=== PATIENT | male | born 1955 | race Caucasian/White ===

== ENCOUNTER 2018-11-24 11:00 | Day surgery (SDC) | payer OTHER ==
[~2018-11-24] VITALS: Ht 182.9 cm; Wt 104.5 kg
[~2018-11-24 11:00] MED LIST: METPRE4DP PO; Percocet 5-3251 EACH PO; SUTENT; TIOT18 INH; [UNRECOGNIZED DRUG - REMARK]
--- NOTE | 2018-11-24 12:24 | NUR ---
11/24/18 1224 Sisi Olmedo FIRST IV START WAS IN RIGHT HAND. IV SIGHT LOOKS GOOD
== END 2018-11-24 14:10 | disposition home or self-care (01) ==
LOC: ORSCSDS 11:00
PROVIDERS: Student in an Organized Health Care Education/Training Program
PROC: 0DB68ZX Excision of Stomach, Via Natural or Artificial Opening Endoscopic, Diagnostic (ICD-10-PCS; principal; 2018-11-24 12:15)
PROC: 0DB58ZX Excision of Esophagus, Via Natural or Artificial Opening Endoscopic, Diagnostic (ICD-10-PCS; principal; 2018-11-24 12:15)
PROC: 0DB98ZX Excision of Duodenum, Via Natural or Artificial Opening Endoscopic, Diagnostic (ICD-10-PCS; principal; 2018-11-24 12:15)
DX: R13.10 Dysphagia, unspecified (principal); R91.8 Other nonspecific abnormal finding of lung field; K29.80 Duodenitis without bleeding; K29.70 Gastritis, unspecified, without bleeding; K20.9 Esophagitis, unspecified; K44.9 Diaphragmatic hernia without obstruction or gangrene; Z87.891 Personal history of nicotine dependence; J45.909 Unspecified asthma, uncomplicated; Z79.899 Other long term (current) drug therapy
CPT/HCPCS: 88305; 88342; J2704; J7120

== ENCOUNTER 2019-03-02 09:48 | Day surgery (SDC) | payer OTHER, MEDICARE ==
[~2019-03-02] VITALS: Ht 180.3 cm; Wt 104.8 kg
--- NOTE | 2019-03-02 11:59 | NUR ---
03/02/19 Inocencia9 Earline Bruce LATE ENTRY PATIENT REFUSED MULTIPLE OFFERS OF PO FLUIDS.
== END 2019-03-02 11:44 | disposition home or self-care (01) ==
LOC: ORSCSDS 09:48
PROVIDERS: Student in an Organized Health Care Education/Training Program
PROC: 0DB68ZX Excision of Stomach, Via Natural or Artificial Opening Endoscopic, Diagnostic (ICD-10-PCS; principal; 2019-03-02 12:00)
PROC: 0DB48ZX Excision of Esophagogastric Junction, Via Natural or Artificial Opening Endoscopic, Diagnostic (ICD-10-PCS; principal; 2019-03-02 12:00)
DX: R13.10 Dysphagia, unspecified (principal); K29.70 Gastritis, unspecified, without bleeding; K31.9 Disease of stomach and duodenum, unspecified; K21.9 Gastro-esophageal reflux disease without esophagitis; K44.9 Diaphragmatic hernia without obstruction or gangrene; J45.909 Unspecified asthma, uncomplicated; Z86.711 Personal history of pulmonary embolism; E66.01 Morbid (severe) obesity due to excess calories; Z68.33 Body mass index [BMI] 33.0-33.9, adult; Z79.899 Other long term (current) drug therapy
CPT/HCPCS: J2001; J2704; J7120

== ENCOUNTER 2019-05-11 01:20 | Inpatient (IN) | payer OTHER, MEDICARE ==
[~2019-05-11] VITALS: Ht 180.3 cm; Wt 105.0 kg
[2019-05-11] MEDS ORDERED: Clotrimazole15 GM TOP (01:40)
[2019-05-11] MEDS ORDERED: OMEP20ER PO (01:40)
[2019-05-11] MEDS ORDERED: MINO50 PO (01:40)
[2019-05-11 02:44] LABS: BASOPHILS ABSOLUTE AUTO 0.01 K/mm3 (0.00-0.23); BASOPHILS PERCENT AUTO 0 % (0-2); EOSINOPHILS ABSOLUTE AUTO 0.06 K/mm3 (0.00-0.68); EOSINOPHILS PERCENT AUTO 2 % (0-6); Hematocrit 32.6 % (37.0-53.0); Hemoglobin 10.4 g/dL (13.5-17.5); IMMATURE GRAN ABSOLUTE AUTO 0.01 K/mm3 (0.00-0.10); IMMATURE GRAN PERCENT AUTO 0 % (0-1); LYMPHOCYTES ABSOLUTE AUTO 0.62 K/mm3 (0.84-5.20); LYMPHOCYTES PERCENT AUTO 17 % (21-46); MONOCYTES ABSOLUTE AUTO 0.76 K/mm3 (0.16-1.47); MONOCYTES PERCENT AUTO 21 % (4-13); Mean Corpuscular HGB 30.7 pg (26.0-34.0); Mean Corpuscular HGB Conc 31.9 g/dL (31.5-36.5); Mean Corpuscular Volume 96 fL (80-100); Mean Platelet Volume 10.2 fL (9.1-12.4); NEUTROPHILS ABSOLUTE AUTO 2.15 K/mm3 (1.96-9.15); NEUTROPHILS PERCENT AUTO 59 % (41-73); Platelet Count 133 K/mm3 (150-400); RDW Coefficient Variation 16.6 % (11.7-14.2); RDW Standard Deviation 59.1 fL (35.1-46.3); Red Blood Cell Count 3.39 M/mm3 (4.30-5.90); White Blood Cell Count 3.61 K/mm3 (4.00-11.30)
[2019-05-11 03:05] LABS: Albumin/Globulin Ratio 0.9 (0.8-1.8); Bilirubin, Total 0.6 mg/dL (0.1-1.0); Bun/Creatinine Ratio 12.7 (12.0-20.0); Creatinine, Blood 1.57 mg/dL (0.60-1.20); Globulin, Blood 3.3 g/dL (2.2-4.0); Magnesium, Blood 1.8 mg/dL (1.6-2.4); Potassium, Blood 4.2 mmol/L (3.5-5.5); Total Protein, Blood 6.3 g/dL (6.4-8.2); Troponin I 0.071 ng/mL (0.000-0.040)
[2019-05-11 03:36] LABS: Influenza A Negative (NEGATIVE); Influenza B Negative (NEGATIVE)
[2019-05-11 04:02] LABS: Source, Urine Clean Catch
[2019-05-11 04:06] LABS: Bilirubin, Urine Neg (Neg); Blood, Urine 1+ (Neg); Glucose Qualitative, Urine Neg (Neg); Ketones, Urine 3+ (Neg); Leukocyte Esterase, Urine Neg (Neg); Nitrite, Urine Neg (Neg); Protein, Urine 2+ (Neg); Specific Gravity, Urine 1.015 (1.003-1.022); Urobilinogen, Urine NORM (Normal)
[2019-05-11 04:10] LABS: Appearance, Urine Clear (Clear); Color, Urine Yellow (P-Yellow)
[2019-05-11 04:12] LABS: Bacteria Few /hpf; Mucus Light (0-Heavy); Red Blood Cells, Urine 0-2 /hpf (0-2); Squamous Epithelial Cells Not Seen /hpf (Few); White Blood Cells, Urine 0-2 /hpf (0-5)
[2019-05-11 04:26] LABS: Adenovirus Not Detected (NOT DETECT); Coronavirus 229E Not Detected (NOT DETECT); Coronavirus HKU1 Not Detected (NOT DETECT); Coronavirus NL63 Not Detected (NOT DETECT); Coronavirus OC43 Not Detected (NOT DETECT); Human Metapneumovirus Not Detected (NOT DETECT); Human Rhinovirus/Enterovirus Not Detected (NOT DETECT); Influenza A/H1 Not Detected (NOT DETECT)
[2019-05-11 04:27] LABS: Bordetella pertussis Not Detected (NOT DETECT); Chlamydophila pneumoniae Not Detected (NOT DETECT); Influenza A/2009-H1 Not Detected (NOT DETECT); Influenza A/H3 Not Detected (NOT DETECT); Influenza B Not Detected (NOT DETECT); Mycoplasma pneumoniae Not Detected (NOT DETECT); Parainfluenza Virus 1 Not Detected (NOT DETECT); Parainfluenza Virus 2 Not Detected (NOT DETECT); Parainfluenza Virus 3 Not Detected (NOT DETECT); Parainfluenza Virus 4 Not Detected (NOT DETECT); Respiratory Syncytial Virus Not Detected (NOT DETECT)
[2019-05-11 06:48] LABS: Test Name COVID-19
[2019-05-11] MEDS ORDERED: Sutent50 MG (06:54)
--- NOTE | 2019-05-11 12:40 | NUR ---
NOTE PT RESTING QUIETLY. SR. VSS. PT SPOUCE HAS GONE HOME TO GET PT HOME MEDICATIONS. PT HAS NO COMPLAINTS AT THIS TIME. IVF INFUSING 100 ML/HR. CONTINUE POT.
[2019-05-12 04:38] LABS: BASOPHILS ABSOLUTE AUTO 0.01 K/mm3 (0.00-0.23); BASOPHILS PERCENT AUTO 0 % (0-2); EOSINOPHILS ABSOLUTE AUTO 0.12 K/mm3 (0.00-0.68); EOSINOPHILS PERCENT AUTO 4 % (0-6); Hematocrit 30.8 % (37.0-53.0); Hemoglobin 9.9 g/dL (13.5-17.5); IMMATURE GRAN ABSOLUTE AUTO 0.01 K/mm3 (0.00-0.10); IMMATURE GRAN PERCENT AUTO 0 % (0-1); LYMPHOCYTES ABSOLUTE AUTO 0.81 K/mm3 (0.84-5.20); LYMPHOCYTES PERCENT AUTO 25 % (21-46); MONOCYTES ABSOLUTE AUTO 0.64 K/mm3 (0.16-1.47); MONOCYTES PERCENT AUTO 20 % (4-13); Mean Corpuscular HGB 30.8 pg (26.0-34.0); Mean Corpuscular HGB Conc 32.1 g/dL (31.5-36.5); Mean Corpuscular Volume 96 fL (80-100); NEUTROPHILS PERCENT AUTO 50 % (41-73); Platelet Count 141 K/mm3 (150-400); RDW Coefficient Variation 16.9 % (11.7-14.2); RDW Standard Deviation 59.3 fL (35.1-46.3); Red Blood Cell Count 3.21 M/mm3 (4.30-5.90); White Blood Cell Count 3.19 K/mm3 (4.00-11.30)
--- NOTE | 2019-05-12 04:47 | NUR ---
PT TRANSFER REPORT GIVEN TO CANDICE MARQUEZ RN. PT BELONGINGS TO BE GATHERED AND BAGGED IN BELONGINGS BAGS AND SENT W/ PT. PT TO GO UP TO RM 327 BY WHEELCHAIR W/ PUPPET MAKER.
[2019-05-12 04:57] LABS: Albumin, Blood 2.6 g/dL (3.4-5.0); Albumin/Globulin Ratio 0.8 (0.8-1.8); Bilirubin, Total 0.3 mg/dL (0.1-1.0); Bun/Creatinine Ratio 13.6 (12.0-20.0); Calcium, Blood 7.8 mg/dL (8.5-10.1); Creatinine, Blood 1.62 mg/dL (0.60-1.20); Globulin, Blood 3.3 g/dL (2.2-4.0); Potassium, Blood 3.8 mmol/L (3.5-5.5); Total Protein, Blood 5.9 g/dL (6.4-8.2)
--- NOTE | 2019-05-12 05:52 | NUR ---
TRANSFER: REPORT IS RECIEVED FROM DISPLAY MANAGER, PATIENT IS TRANSFERED VIA WHEEL CHAIR. NO COMPLIANTS AT THOS TIME. PATIENT IS IN ISOLATION PENDING LAB RESULTS.
--- NOTE | 2019-05-12 07:37 | NUR ---
SHIFT SUMMARY: PATIENT HAS SLEPT SINCE COMING TO THE FLOOR, CONTINUES TO SLEEP COMFORTABLY. "I HAVE NEVER SLEPT SO MUCH IN MY LIFE". PATIENT REMAINS IN ENHANCED ISOLATION PENDING RESULTS TO R/O MELANI.
[2019-05-12] MEDS ORDERED: ACET325 PO (09:22)
[2019-05-12] MEDS ORDERED: SENN187 PO (09:23)
[2019-05-12] MEDS ORDERED: ONDA4ODT MM (09:23)
[2019-05-12] MEDS ORDERED: DOCU100 PO (09:24)
[2019-05-12] MEDS ORDERED: AMOCLA875 PO (09:25)
[2019-05-12] MEDS ORDERED: ALBU90OI INH (09:26)
--- NOTE | 2019-05-12 14:32 | NUR ---
COVID TEST RESULTS CAME BACK NEGATIVE. DR FULLER NOTIFIED. PATIENT TO BE DISCHARGED HOME. IV REMOVED. TELE REMOVED. PATIENT IN ROOM PREPARING FOR DISCHARGE WITH AT BEDSIDE.
--- NOTE | 2019-05-12 15:19 | NUR ---
DISCHARGE INSTRUCTIONS GIVEN TO PATIENT WITH EDUCATIONAL MATERIAL. ALL QUESTIONS ANSWERED. PATIENT DISCHARGED HOME WITH AT 1518.
== END 2019-05-12 15:15 | disposition home or self-care (01) | DRG 809 ==
LOC: ER 01:20 → MEDS 05:32 → PCU 05:32 → MEDS 05-12 05:21 → ENPENDDIS 05-12 14:42 → MEDS 05-12 15:15
PROVIDERS: Emergency Medicine; ADMIT Internal Medicine
DX: D61.818 Other pancytopenia (principal); C64.9 Malignant neoplasm of unspecified kidney, except renal pelvis; N18.3 Chronic kidney disease, stage 3 (moderate); G56.00 Carpal tunnel syndrome, unspecified upper limb; J45.909 Unspecified asthma, uncomplicated; R91.8 Other nonspecific abnormal finding of lung field; Z92.21 Personal history of antineoplastic chemotherapy; Z90.5 Acquired absence of kidney; Z87.891 Personal history of nicotine dependence
CPT/HCPCS: 0099U; 36415; 71045; 71250; 80053; 81001; 83605; 83735; 84145; 84484; 85025; 87040; 87804; 93005; 93010; 96365; 96366; 96368; 99284-25; A9270; J0696; J1644; J3370; J7030; J7050; U0001

== ENCOUNTER → 2020-07-06 | Outpatient (CLI) | payer MEDICARE, BC ==
[~2020-07-06] MED LIST changes: +ACET325 PO; +ALBU90OI INH; +AMOCLA875 PO; +Clotrimazole15 GM TOP; +DOCU100 PO; +MINO50 PO; +OMEP20ER PO; +ONDA4ODT MM; +SENN187 PO; +Sutent50 MG
== END ==
LOC: LAB 11:30 → LAB SHORT 11:30
DX: R21 Rash and other nonspecific skin eruption (principal)
CPT/HCPCS: 87070; 87077; 87147; 87186; 87205

== ENCOUNTER 2022-01-25 08:12 | Day surgery (SDC) | payer MEDICARE, BC ==
[~2022-01-25] VITALS: Ht 180.3 cm; Wt 97.5 kg
== END 2022-01-25 09:54 | disposition home or self-care (01) ==
LOC: ORSCSDS 08:12
PROVIDERS: Ophthalmology
PROC: 08DJ3ZZ Extraction of Right Lens, Percutaneous Approach (ICD-10-PCS; principal; 2022-01-25 09:30)
DX: H25.11 Age-related nuclear cataract, right eye (principal); Z79.899 Other long term (current) drug therapy; J45.909 Unspecified asthma, uncomplicated; K21.9 Gastro-esophageal reflux disease without esophagitis; E66.9 Obesity, unspecified; Z68.30 Body mass index [BMI] 30.0-30.9, adult; Z87.891 Personal history of nicotine dependence
CPT/HCPCS: J2001; J2250; J3010; J3301; J7040; V2632

== ENCOUNTER 2022-02-08 08:12 | Day surgery (SDC) | payer MEDICARE, BC ==
[~2022-02-08] VITALS: Ht 180.3 cm; Wt 99.6 kg
== END 2022-02-08 10:10 | disposition home or self-care (01) ==
LOC: ORSCSDS 08:12
PROVIDERS: Ophthalmology
PROC: 08DK3ZZ Extraction of Left Lens, Percutaneous Approach (ICD-10-PCS; principal; 2022-02-08 09:30)
DX: H25.12 Age-related nuclear cataract, left eye (principal); Z96.1 Presence of intraocular lens; Z86.711 Personal history of pulmonary embolism; J45.909 Unspecified asthma, uncomplicated; E66.9 Obesity, unspecified; Z68.30 Body mass index [BMI] 30.0-30.9, adult; Z79.899 Other long term (current) drug therapy
CPT/HCPCS: J2250; J3010; J3301; J7040; V2632

== ENCOUNTER 2022-12-11 07:18 | Day surgery (SDC) | payer MEDICARE, BC ==
[~2022-12-11] VITALS: Ht 170.2 cm; Wt 88.5 kg
[2022-12-11] MEDS ORDERED: ACET500 PO (07:32)
[2022-12-11 07:43] VITALS: BP 104/65
--- NOTE | 2022-12-11 07:51 | NUR ---
Ambulatory in Day Surgery History, Chart, Medications and Allergies reviewed before start of procedure. Pre-Op teaching done. Pt verbalizes understanding. Patient States Post-Procedure ride home has been arranged.
[2022-12-11 08:47] VITALS: BP 94/64
--- NOTE | 2022-12-11 08:56 | NUR ---
0847 REPORT RECEIVED FROM ALBERTO BETANCOURT. VSS AND CONSISTENT WITH PT BASELINE. PT ABLE TO REPOSITION SELF IN BED. PT SITTING UP REQUESTING PO FLUIDS AND TOLERATING THEM WELL. PT DENIES PAIN, NAUSEA, OR OTHER DISCOMFORTS AT THIS TIME.
--- NOTE | 2022-12-11 08:57 | NUR ---
12/11/22 08Angeline Rodriguez HISTORY, CHART, MEDICATIONS AND ALLERGIES REVIEWED BEFORE START OF PROCEDURE. PATIENT CONFIRMS NPO STATUS AND AGREES WITH SCHEDULED PROCEDURE. 3-LEAD EKG REVIEWED WITH PHYSICIAN PRIOR TO START OF PROCEDURE. MONITOR INTACT WITH CONTINUOUS PULSE OXIMETRY,CAPNOGRAPHY, 3-LEAD EKG, INTERMITTENT BP. SUPPLEMENTAL O2 TO BE TITRATED THROUGHOUT PROCEDURE TO MAINTAIN O2 SATURATION ABOVE 90%. PATIENT DETERMINED TO BE ASA APPROPRIATE FOR PROPOFOL SEDATION PRIOR TO START OF PROCEDURE BY .
[2022-12-11 09:03] VITALS: BP 95/73
[2022-12-11 09:10] VITALS: BP 101/74
--- NOTE | 2022-12-11 09:19 | NUR ---
Patient up to Ambulate independently. Gait steady. VSS AND CONSISTENT WITH PT BASELINE. Discharge instructions reviewed with patient. Patient verbalizes understanding. Copy given to patient to take home. Patient States Post-Procedure ride home has been arranged. Discharged via wheelchair to private car for ride home. PT BELONGINGS RETURNED TO PT.
== END 2022-12-11 09:21 | disposition home or self-care (01) ==
LOC: ORSCMMR 07:18 → ORD 08:00 → ORSCMMR 08:00
PROVIDERS: Internal Medicine Gastroenterology
PROC: 0DBK8ZX Excision of Ascending Colon, Via Natural or Artificial Opening Endoscopic, Diagnostic (ICD-10-PCS; principal; 2022-12-11 08:00)
DX: Z12.11 Encounter for screening for malignant neoplasm of colon (principal); D12.2 Benign neoplasm of ascending colon; R19.5 Other fecal abnormalities; K21.9 Gastro-esophageal reflux disease without esophagitis; J45.909 Unspecified asthma, uncomplicated; Z85.528 Personal history of other malignant neoplasm of kidney; Z79.899 Other long term (current) drug therapy
CPT/HCPCS: 88305; J2704; J7120

== ENCOUNTER → 2024-01-07 | Outpatient (CLI) | payer MEDICARE, BC ==
[~2024-01-07] MED LIST changes: +ACET500 PO
== END ==
LOC: LAB SHORT 08:26 → PLD 08:26
DX: D48.5 Neoplasm of uncertain behavior of skin (principal)
CPT/HCPCS: 88341; 88342

== ENCOUNTER → 2024-02-06 | Outpatient (CLI) | payer MEDICARE, BC | LOC: LAB SHORT 17:12 → LAB 17:12 | DX: L08.9 Local infection of the skin and subcutaneous tissue, unspecified (principal); C79.2 Secondary malignant neoplasm of skin; D48.5 Neoplasm of uncertain behavior of skin; B88.0 Other acariasis | CPT/HCPCS: 87070; 87077; 87147; 87186; 87205 ==

== ENCOUNTER → 2024-09-08 | Outpatient (CLI) | payer MEDICARE, BC | LOC: LAB 10:30 → LAB SHORT 10:30 | DX: L08.9 Local infection of the skin and subcutaneous tissue, unspecified (principal) | CPT/HCPCS: 87070; 87077; 87186; 87205 ==

== ENCOUNTER 2024-10-14 08:17 | Day surgery (SDC) | payer MEDICARE, BC ==
[~2024-10-14] VITALS: Ht 172.7 cm; Wt 85.7 kg
[~2024-10-14 08:17] MED LIST changes: +CABOMETYX40 MG PO; +OPDIVO40 MG/4 ML IV; +PRED5 PO
[2024-10-14 08:35] VITALS: BP 133/86
--- NOTE | 2024-10-14 08:43 | NUR ---
PRE PROCEDURE NOTE PT A&OX4, BREATHING RA, NO COMPLAINTS. Ambulatory in Day Surgery Patient confirms NPO status and agrees with scheduled surgery. Pre-Op teaching done. Pt verbalizes understanding. Patient States Post-Procedure ride home has been arranged.
--- NOTE | 2024-10-14 09:17 | NUR ---
10/14/24 0917 Hannah Serna History, Chart, Medications and Allergies reviewed before start of procedure.MO PROVIDING ANESTHESIA, SEE RECORDS
[2024-10-14] MEDS ORDERED: Benzocaine Oral Spray 0.5ML UD ONE (09:32)
[2024-10-14 10:09] VITALS: BP 102/64
[2024-10-14 10:19] VITALS: BP 108/74
--- NOTE | 2024-10-14 10:37 | NUR ---
Patient up to Ambulate independently. Gait steady. Discharge instructions reviewed with patient. Patient verbalizes understanding. Copy given to patient to take home. Patient States Post-Procedure ride home has been arranged. Discharged via wheelchair to private car for ride home. Pt belongings returned to pt.
== END 2024-10-14 10:38 | disposition home or self-care (01) ==
LOC: ORSCMMR 08:17 → ORD 08:45 → ORSCMMR 10:38
PROVIDERS: Internal Medicine Gastroenterology
PROC: 0DBA8ZX Excision of Jejunum, Via Natural or Artificial Opening Endoscopic, Diagnostic (ICD-10-PCS; principal; 2024-10-14 08:45)
PROC: 0DB68ZX Excision of Stomach, Via Natural or Artificial Opening Endoscopic, Diagnostic (ICD-10-PCS; principal; 2024-10-14 08:45)
PROC: 0DB98ZX Excision of Duodenum, Via Natural or Artificial Opening Endoscopic, Diagnostic (ICD-10-PCS; principal; 2024-10-14 08:45)
DX: R93.5 Abnormal findings on diagnostic imaging of other abdominal regions, including retroperitoneum (principal); Z85.528 Personal history of other malignant neoplasm of kidney; C64.9 Malignant neoplasm of unspecified kidney, except renal pelvis; K29.50 Unspecified chronic gastritis without bleeding; K44.9 Diaphragmatic hernia without obstruction or gangrene; D64.9 Anemia, unspecified; D70.9 Neutropenia, unspecified; K31.7 Polyp of stomach and duodenum; K21.9 Gastro-esophageal reflux disease without esophagitis; Z79.899 Other long term (current) drug therapy
CPT/HCPCS: 88305; 88342; A9270; J2704

== ENCOUNTER 2025-01-05 15:24 | Emergency (ER) | payer MEDICARE, BC ==
[~2025-01-05] VITALS: Ht 299.7 cm; Wt 77.1 kg
[2025-01-05 17:15] LABS: BASOPHILS ABSOLUTE AUTO 0.02 K/mm3 (0.00-0.23); BASOPHILS PERCENT AUTO 0 % (0-2); EOSINOPHILS ABSOLUTE AUTO 0.11 K/mm3 (0.00-0.68); EOSINOPHILS PERCENT AUTO 1 % (0-6); Hematocrit 37.1 % (37.0-53.0); Hemoglobin 11.7 g/dL (13.5-17.5); IMMATURE GRAN ABSOLUTE AUTO 0.03 K/mm3 (0.00-0.10); IMMATURE GRAN PERCENT AUTO 0 % (0-1); LYMPHOCYTES ABSOLUTE AUTO 1.66 K/mm3 (0.84-5.20); LYMPHOCYTES PERCENT AUTO 21 % (21-46); MONOCYTES ABSOLUTE AUTO 0.66 K/mm3 (0.16-1.47); MONOCYTES PERCENT AUTO 8 % (4-13); Mean Corpuscular HGB Conc 31.5 g/dL (31.5-36.5); Mean Corpuscular Volume 94 fL (80-100); NEUTROPHILS ABSOLUTE AUTO 5.56 K/mm3 (1.96-9.15); NEUTROPHILS PERCENT AUTO 69 % (41-73); NRBC ABSOLUTE 0.00 K/mm3 (0.00-0.02); NRBC Auto 0.0 /100 WBC (0.0-0.2); Platelet Count 251 K/mm3 (150-400); RDW Coefficient Variation 19.4 % (11.7-14.2); RDW Standard Deviation 66.4 fL (35.1-46.3)
[2025-01-05 17:53] LABS: Alanine Aminotransfer (ALT/SGP 50.0 U/L (12-78); Albumin, Blood 2.5 g/dL (3.4-5.0); Albumin/Globulin Ratio 0.8 (0.8-1.8); Anion Gap 8.0 mmol/L (3-11); Aspartate Aminotrans (AST/SGOT 37.0 U/L (12-37); Bilirubin, Total 0.3 mg/dL (0.1-1.0); Blood Urea Nitrogen 28.0 mg/dL (8-24); CO2, Blood 22.0 mmol/L (21-32); Calcium, Blood 8.5 mg/dL (8.5-10.1); Chloride, Blood 113.0 mmol/L (98-108); Creatinine, Blood 1.24 mg/dL (0.60-1.20); Globulin, Blood 3.1 g/dL (2.2-4.0); Glucose, Blood 103.0 mg/dL (70-99); Potassium, Blood 3.9 mmol/L (3.5-5.5); Sodium, Blood 139.0 mmol/L (136-145); Total Protein, Blood 5.6 g/dL (6.4-8.2)
[2025-01-05 19:36] LABS: Source, Urine Clean Catch
[2025-01-05 19:38] LABS: Bilirubin, Urine Neg (Neg); Color, Urine Yellow (P-Yellow); Glucose Qualitative, Urine Neg (Neg); Ketones, Urine 1+ (Neg); Leukocyte Esterase, Urine 1+ (Neg); Protein, Urine 2+ (Neg); Specific Gravity, Urine 1.025 (1.003-1.022); Urobilinogen, Urine NORM (Normal)
[2025-01-05 19:45] LABS: Red Blood Cells, Urine 0-2 /hpf (0-2)
[2025-01-05 20:09] VITALS: BP 114/78
== END 2025-01-05 20:49 | disposition home or self-care (01) ==
LOC: ER 15:24
PROVIDERS: Student in an Organized Health Care Education/Training Program
DX: R10.9 Unspecified abdominal pain (principal); K52.9 Noninfective gastroenteritis and colitis, unspecified; K76.9 Liver disease, unspecified; C64.9 Malignant neoplasm of unspecified kidney, except renal pelvis; J45.909 Unspecified asthma, uncomplicated; Z79.899 Other long term (current) drug therapy; Z87.891 Personal history of nicotine dependence
CPT/HCPCS: 74177; 80053; 81001; 83690; 85025; 87086; 99284-25; Q9967